=== PATIENT | female | born 1995 | race Caucasian/White ===

== ENCOUNTER 2021-06-20 20:40 | Inpatient (IN) ==
[2021-06-20] MEDS ORDERED: ONDANSETRON 4 MG/2 ML VIAL IV PRN (21:24)
[2021-06-20] MEDS ORDERED: MEPERIDINE 50 MG/1 ML VIAL IV PRN (21:24)
[2021-06-20 21:54] LABS: Basophils % 0.2 % (0.0-0.8); Eosinophils % 0.4 % (0.00-10.9); Hematocrit 32.4 VOL% (35.7-47.0); Hemoglobin 10.5 GM/DL (12.0-16.0); Immature Granulocytes % 0.7 %; Immature Granulocytes Absolute 0.07 #; Lymphocytes # 2.2 10*3/uL (1.4-4.0); Lymphocytes % 21.2 % (21.3-54.2); Mean Corpuscular HGB Conc 32.4 GM/DL (32-36); Mean Corpuscular Volume 93.4 FL (87-102); Mean Platelet Volume 11.4 FL (9.6-12.0); Monocytes % 7.3 % (1.7-12.7); Neutrophils % 70.2 % (38.7-73.9); Platelet Count 243 T/CUMM (130-400); Red Blood Count 3.47 MC/CUMM (3.8-5.5); Red Cell Distribution Width 12.7 % (9.3-17.3); White Blood Count 10.5 T/CUMM (4-12)
[2021-06-20 22:27] LABS: Alanine Aminotransferase 32 U/L (13-56); Albumin 2.6 G/DL (3.4-5.0); Alkaline Phosphatase 118 U/L (45-117); Aspartate Amino Transferase 28 U/L (0-37); Bilirubin,Total < 0.39 MG/DL (0.20-1.00); Blood Urea Nitrogen 14 MG/DL (7-18); Calcium 8.8 MG/DL (8.5-10.1); Carbon Dioxide 21 MMOL/L (21-32); Estimated Glom Filtration Rate 150 ML/MIN; Glucose 82 MG/DL (74-106); Osmolality,Calculated 274.7 MOS/KG (273-304); Potassium 3.7 MMOL/L (3.5-5.1); Sodium 138 MMOL/L (136-145); Total Protein 6.6 G/DL (6.4-8.2)
[2021-06-21] MEDS: BUTORPHANOL 2 MG/ML VIAL IV PRN ×2 (12:02→15:55)
[2021-06-21] MEDS ORDERED: CITRIC ACID/SODIUM CITRATE 30 ML UDCUP PO ONE (16:37)
[2021-06-21] MEDS ORDERED: LACTATED RINGERS 1,000 ML IV ONE (16:37)
[2021-06-21] MEDS ORDERED: FAMOTIDINE 20 MG/2 ML VIAL IV ONE (16:37)
[2021-06-21] MEDS ORDERED: diphenhydrAMINE 50 MG/1 ML VIAL IV PRN ×2 (16:38)
[2021-06-21] MEDS ORDERED: PROMETHAZINE 25 MG/1 ML VIAL IM ONE (16:38)
[2021-06-21] MEDS ORDERED: hydrOXYzine HCL 25 MG/1 ML VIAL IM PRN (16:38)
[2021-06-21] MEDS ORDERED: NALOXONE 0.4 MG/ML VIAL IV PRN (16:38)
[2021-06-21] MEDS ORDERED: ONDANSETRON 4 MG/2 ML VIAL IV ONE (16:38)
[2021-06-21] MEDS ORDERED: ePHEDrine 50 MG/ML VIAL IV PRN (16:38)
[2021-06-21] MEDS ORDERED: fentaNYL 2 MCG/ROPIV 0.2% EPID 100 ML EPIDURAL SCH (17:00)
[2021-06-21] MEDS: LACTATED RINGERS 1,000 ML IV SCH ×3 (17:01→21:39)
[2021-06-21 19:11] LABS: Bilirubin,Urine Negative (Negative); Blood, Urine Negative (Negative); Glucose,Urine (UA) Negative (Negative); Ketones,Urine 20 mg/dL (Negative); Mucus,Urine Occasional /LPF (Occasional); Nitrite,Urine Negative (Negative); Protein,Urine Negative; Squamous Epithelial Cell,Urine Occasional /HPF (0-10); Urine Appearance CLEAR (Clear); Urine Color Yellow (Yellow); Urine Specific Gravity 1.016 (1.001-1.035); Urine Urobilinogen < 2.0 EU/DL (0.2-1.0)
[2021-06-21] MEDS ORDERED: miSOPROStoL 200 MCG TABLET ONE (19:31)
[2021-06-21] MEDS ORDERED: TRANEXAMIC ACID 1,000 MG/10 ML VIAL ONE (19:31)
[2021-06-21] MEDS ORDERED: OXYTOCIN/LR 20 UNIT/1,000 ML BAG IV ONE ×2 (19:31→21:05)
[2021-06-21] MEDS ORDERED: SODIUM CHLORIDE 0.9% 0 ML IV ONE (19:31)
[2021-06-21] MEDS ORDERED: CARBOPROST TROMETHAMINE 250 MCG/ML AMP IM ONE (19:32)
[2021-06-21] MEDS ORDERED: METHYLERGONOVINE 0.2 MG/1 ML AMP ONE (19:32)
[2021-06-21 21:17] LABS: Cord Venous Blood HCO3 20.2 MMOL/L; Cord Venous Blood PCO2 45.2 MMHG; Cord Venous Blood PO2 28.7
[2021-06-22] MEDS ORDERED: MEASLES/MUMPS/RUBELLA VACCINE 0.5 ML VIAL SUBCUT ONE (00:16)
[2021-06-22] MEDS ORDERED: RHO(D) IMMUNE GLOBULIN 300 MCG SYRINGE IM ONE (00:16)
[2021-06-22] MEDS ORDERED: ONDANSETRON 4 MG/2 ML VIAL IV PRN (00:16)
[2021-06-22] MEDS ORDERED: BISACODYL 10 MG SUPP RECTAL PRN (00:16)
[2021-06-22] MEDS ORDERED: ACETAMINOPHEN 325 MG TABLET PO PRN (00:16)
[2021-06-22] MEDS ORDERED: HYDROCORTISONE 2.5% RECTAL CREAM 30 GM TUBE TOP PRN (00:16)
[2021-06-22] MEDS ORDERED: DIPH/TET/ACEL PERT BOOSTER VACCINE 0.5 ML VIAL IM ONE (00:16)
[2021-06-22] MEDS ORDERED: OXYTOCIN/LR 20 UNIT/1,000 ML BAG IV ONE (00:16)
[2021-06-22] MEDS ORDERED: LANOLIN 50% CREAM 0.3 OZ TUBE TOP PRN (00:16)
[2021-06-22] MEDS ORDERED: oxyCODONE/ACETAMINOPHEN 5-325 MG TABLET PO PRN ×2 (00:16)
[2021-06-22] MEDS: IBUPROFEN 800 MG TABLET PO PRN ×2 (00:53→09:34)
[2021-06-22] MEDS: WITCH HAZEL PADS 100/JAR TOP PRN (05:40)
[2021-06-22 06:51] LABS: Basophils % 0.1 % (0.0-0.8); Eosinophils % 0.1 % (0.00-10.9); Hematocrit 32.2 VOL% (35.7-47.0); Hemoglobin 10.2 GM/DL (12.0-16.0); Immature Granulocytes % 0.6 %; Immature Granulocytes Absolute 0.08 #; Lymphocytes # 1.6 10*3/uL (1.4-4.0); Lymphocytes % 11.5 % (21.3-54.2); Mean Corpuscular HGB Conc 31.7 GM/DL (32-36); Mean Corpuscular Volume 94.4 FL (87-102); Mean Platelet Volume 11.9 FL (9.6-12.0); Neutrophils % 80.7 % (38.7-73.9); Platelet Count 210 T/CUMM (130-400); Red Blood Count 3.41 MC/CUMM (3.8-5.5); Red Cell Distribution Width 12.8 % (9.3-17.3); White Blood Count 13.9 T/CUMM (4-12)
[2021-06-22] MEDS: DOCUSATE SODIUM 100 MG CAPSULE PO SCH ×2 (09:35→20:43)
[2021-06-22] MEDS: BENZOCAINE 20%/MENTHOL 0.5% SPRAY 56 GM CAN TOP PRN (16:30)
[2021-06-23] MEDS: WITCH HAZEL PADS 100/JAR TOP PRN (03:48)
[2021-06-23 08:04] VITALS: BP 134/80
[2021-06-23] MEDS: DOCUSATE SODIUM 100 MG CAPSULE PO SCH (08:41)
[2021-06-23] MEDS: BENZOCAINE 20%/MENTHOL 0.5% SPRAY 56 GM CAN TOP PRN (08:42)
== END 2021-06-23 12:10 | disposition home or self-care (01) | DRG 807 ==
LOC: N.LDOUT 20:40 → N.LD 20:41 → N.OB 06-22 00:13
PROVIDERS: ADMIT Specialist; ATTEND Specialist